=== PATIENT | male | born 1965 | race Caucasian/White ===

== ENCOUNTER 2025-05-19 14:11 | Observation (INO) | payer SELFPAY ==
[2025-05-19] VITALS (9 sets, daily range): BP systolic 120–170; BP diastolic 82–116; PULSE 70–100; RESP 17–22; TEMP 36.4–37.1; O2SAT 92–97; BMI 29.0
--- NOTE | ~2025-05-19 | CT_ITS ---
CT brain wo con Indication: AMS Comparison: None Technique: One or more of the following dose reduction techniques were used: automated exposure control, adjustment of the mA and/or kV according to patient size, use of iterative reconstruction technique. Unless otherwise stated, incidental findings do not require dedicated follow up imaging Findings: No acute infarct or parenchymal hemorrhage. No abnormal mass or mass effect. No midline shift. No extra-axial fluid collections. No hydrocephalus. Mastoid air cells unremarkable. Sinuses and orbits unremarkable. No acute fracture. No significant facial or scalp soft tissue swelling evident. No radiopaque foreign body is seen. Impression: No acute intracranial abnormality. Reviewed, dictated and finalized at location P. RATORY SECRETARY Impression: No acute intracranial abnormality.
--- NOTE | ~2025-05-19 | MR_ITS ---
EXAMINATION: MR brain/brain stem wo con DATE: 05/20/2025 16:04 INDICATION: Seizure TECHNIQUE: Magnetic resonance imaging (MRI) of the brain and brainstem was performed without intravenous contrast. Sequences included sagittal and axial T1-weighted SE, axial diffusion-weighted FS SE, axial T2*-weighted GRE, axial T2-weighted FLAIR, and axial T2-weighted FSE. Postcontrast axial and coronal T1- weighted SE was obtained. Apparent diffusion coefficient (ADC) maps were created. COMPARISON: Head CT dated 05/19/2025 FINDINGS: There is magnetic field artifact most prominent on the diffusion weighted and susceptibility weighted imaging centered at the left zygoma where there is a small wire evident on prior CT. There are no areas of restricted diffusion to suggest acute infarction. No intracranial hemorrhage or abnormal intracranial mass lesion. There are a few scattered small foci of nonspecific increased T2- weighted signal intensity in the cerebral white matter, predominantly involving the deep and periventricular white matter. There are no intraparenchymal signal abnormalities seen on the other pulse sequences. The ventricles are symmetric and normal in size. There are no abnormal extra-axial fluid collections. Flow vo ids are seen in the cerebral arteries on the T2-weighted sequences consistent with their expected patency. Small left mastoid effusion. Visualized orbits and soft tissues are unremarkable. IMPRESSION: 1. Minimal scattered mesenteric cerebral white matter T2 hyperintensity which within normal limits for age and likely sequela of chronic small vessel ischemic disease. No acute intracranial process. 2. Small left mastoid effusion. Reviewed, dictated and finalized at location A. DIRECTOR IMPRESSION: 1. Minimal scattered mesenteric cerebral white matter T2 hyperintensity which w ithin normal limits for age and likely sequela of chronic small vessel ischemic disease. No acute intracranial process. 2. Small left mastoid effusion.
--- NOTE | 2025-05-19 14:21 | ECG_ITS ---
Test Date: 2025-05-19 14:26:17 Measurements Intervals [place] Rate: 81 P: 42 DC: 177 QRS: -79 QRSD: 101 T: 6 QT: 398 QTc: 464 Interpretive Statements SINUS RHYTHM INCOMPLETE RIGHT BUNDLE BRANCH BLOCK LEFT ANTERIOR FASCICULAR BLOCK BASELINE WANDER- V1 ABNORMAL ECG No previous ECG available for comparison Electronically Signed On 05-19-2025 14:30:15 COORDINATOR OF EVALUATION by Arpan Barahona D.O.
[2025-05-19 14:44] LABS: Hematocrit 35.4 % (42.0-52.0); Hemoglobin 12.5 g/dL (14.0-18.0); Immature Granulocyte Percent A 1.1 % (0-0.5); Immature Platelet Fraction Pct 1.8 % (0.9-11.2); Lymphocytes Absolute Auto 0.65 K/mm3 (0.9-3.2); Mean Corpuscular HGB Conc 35.3 g/dl (32-36); Mean Corpuscular Hemoglobin 38.0 pg (26-34); Mean Corpuscular Volume 107.6 fl (80-100); Nucleated Red Blood Cells Absolute Auto 0.000 K/mm3 (0.0-0.012); Nucleated Red Blood Cells Perc 0.0 % (0.0-0.2); Platelet Count Result 103 k/mm3 (150-375); Red Blood Count 3.29 M/mm3 (4.6-6.20); White Blood Count 5.6 K/mm3 (4.5-10.0)
[2025-05-19 14:52] LABS: Alanine Aminotransferase 37 U/L (6-50); Albumin Level 4.8 g/dL (3.5-5.1); Alkaline Phosphatase 79 U/L (38-126); Anion Gap 17 mmol/L (4-12); Aspartate Amino Transferase 65 U/L (17-59); Bilirubin,Total 0.8 mg/dL (0.2-1.3); Blood Urea Nitrogen 9 mg/dL (9-20); Calcium 8.9 mg/dL (8.4-10.2); Carbon Dioxide 14 mmol/L (22-30); Chloride 103 mmol/L (98-107); Estimated CRCL calculation 109 ml/min; Estimated Glomerular Filt Rate > 60; Glucose 138 mg/dL (65-110); Potassium 4.4 mmol/L (3.4-5.0); Sodium 134 mmol/L (137-145); Total Protein 7.7 g/dL (6.3-8.2)
[2025-05-19 15:18] LABS: Macrocytosis Occasional (NORMAL); Schistocytes None Seen
[2025-05-19 15:21] LABS: Add Urine Microscopic? YES; Appearance Urine Clear (Clear); Glucose Urine UA Negative (Negative); Leukocyte Esterase Ur Negative LEU/UL (Negative); Nitrate Urine Negative (Negative); Specific Grav Ur 1.015 (1.001-1.035)
[2025-05-19 15:26] LABS: Thyroid Stimulating Hormone Reflex 9.410 uIU/mL (0.465-4.68)
[2025-05-19 15:37] LABS: INR 1.0; Prothrombin Time 13.7 Seconds (11.1-14.7)
[2025-05-19 15:38] LABS: Partial Thromboplastin Time 25.2 Seconds (22.3-36.8)
[2025-05-19 15:50] LABS: Cannabinoid Screen Urine Negative (Negative)
[2025-05-19 16:02] LABS: Free T4 Free Thyroxine Reflex 0.72 ng/dL (0.78-2.19)
--- NOTE | 2025-05-19 16:36 | ED_ITS ---
HPI - Altered Mental Status General Chief Complaint: Altered Mental Status Stated Complaint: fall, AMS Time Seen by Provider: 05/19/25 14:15 History of Present Illness HPI narrative: Patient is a 60-year-old male who presents ER from [facility] with altered mental status. Patient got up to use restroom and then a friend heard a crash in the bathroom. When they checked on him he was shaking. Patient has history of heavy alcohol use. Him and his friends recently drove to the area from [place] and were in the car overnight and he had not had a drink of alcohol since 1:30 a.m.. They are unsure if he has history of alcohol withdrawal seizure. Patient is currently alert to self. He has some bruising to the back of his head. Related Data Allergies Allergy/AdvReac Type Severity Reaction Status Date / Time No Known Allergies Allergy Verified 05/19/25 14:22 Review of Systems 2 Review of Systems: ROS unobtainable: Yes unobtainable due to mental status PMFSH Past Medical History Medical History (Updated 05/19/25 @ 21:52 by Sunday Conti MD) Fx clavicle Left - Surgical Repair Amputation finger No pertinent past medical history Exam 2 Narrative: GENERAL: Well-appearing, well-nourished, and in no acute distress. HEAD: Normocephalic, bruising back of the head ENT: Mucous membranes moist. NECK: Supple. CHEST: Clear to auscultation. No respiratory distress. HEART: Regular rate and rhythm. Normal peripheral pulses. ABDOMEN: Soft, nontender, nondistended. EXTREMITIES: Normal range of motion. No edema. SKIN: Warm, dry, pink splotchy rash to the arms and legs. NEURO: Alert and oriented x1. Mildly tremulous. PSYCH: Normal mood and affect. Course Course Emergency Course: Patient improving is now alert orient x4. He is a heavy alcohol drinker and drinks about a 5th of out alcohol a day. No history of withdrawal seizure. He is comfortable staying in the hospital for further management of his alcohol withdrawal. He has received some Valium and fluids. He is slightly tremulous. Vital Signs Vital signs: Vital Signs Temperature 97.6 F 05/19/25 14:16 Pulse Rate 90 05/19/25 14:16 Respiratory Rate 19 05/19/25 14:16 Blood Pressure 120/82 05/19/25 14:16 Pulse Oximetry 92 05/19/25 14:16 Oxygen Delivery Room Air 05/19/25 14:16 Temperature 98.4 F 05/19/25 21:00 Pulse Rate 83 05/19/25 21:00 Respiratory Rate 22 H 05/19/25 21:00 Blood Pressure 162/112 H 05/19/25 21:00 Pulse Oximetry 96 05/19/25 21:00 Oxygen Delivery Room Air 05/19/25 14:16 MDM Differential Diagnosis Differential Diagnosis: Seizure, alcohol withdrawal, intracranial hemorrhage, CVA, pulmonary embolism Lab Data 05/19/25 14:34 05/19/25 14:34 Labs: Lab Results 05/19/25 05/19/25 Range/Units 14:34 15:11 WBC 5.6 (4.5-10.0) K/mm3 RBC 3.29 L (4.6-6.20) M/mm3 Hgb 12.5 L (14.0-18.0) g/dL Hct 35.4 L (42.0-52.0) % MCV 107.6 H (80-100) fl MCH 38.0 H (26-34) pg MCHC 35.3 (32-36) g/dl RDW 14.0 (11.5-14.5) % Plt Count 103 L (150-375) k/mm3 MPV 8.8 (7.4-10.4) fl Immature Gran % (Auto) 1.1 H (0-0.5) % Neut % (Auto) 78.6 H (45.5-73.1) % Lymph % (Auto) 11.5 L (18.3-44.2) % [place] % (Auto) 7.3 (2.6-8.5) % Eos % (Auto) 1.1 (0-4.4) % Baso % (Auto) 0.4 (0.2-1.2) % Lymph # (Auto) 0.65 L (0.9-3.2) K/mm3 [place] # (Auto) 0.4 (0.1-0.6) K/mm3 Eos # (Auto) 0.1 (0-0.3) K/mm3 Baso # (Auto) 0.0 (0.0-0.1) K/mm3 Abs Immat Gran (auto) 0.06 H (0.00-0.031) K/mm3 Absolute Neuts (auto) 4.4 (1.3-6.7) K/mm3 Absolute Nucleated RBC 0.000 (0.0-0.012) K/mm3 Band Neutrophils % Not Reportable Nucleated RBC % 0.0 (0.0-0.2) % Atypical Lymphocytes Present Platelet Estimate Decreased (Adequate) % Immature Plt Fraction 1.8 (0.9-11.2) % Macrocytosis Occasional (NORMAL) Schistocytes None seen PT 13.7 (11.1-14.7) Seconds INR 1.0 APTT 25.2 (22.3-36.8) Seconds Sodium 134 L (137-145) mmol/L Potassium 4.4 (3.4-5.0) mmol/L Chloride 103 (98-107) mmol/L Carbon Dioxide 14 L (22-30) mmol/L Anion Gap 17 H (4-12) mmol/L BUN 9 (9-20) mg/dL Creatinine 0.67 L (0.7-1.3) mg/dL Estim Creat Clear Calc 109 ml/min Estimated GFR > 60 (59 - ) Glucose 138 H (65-110) mg/dL Calcium 8.9 (8.4-10.2) mg/dL Total Bilirubin 0.8 (0.2-1.3) mg/dL AST 65 H (17-59) U/L ALT 37 (6-50) U/L Alkaline Phosphatase 79 (38-126) U/L Total Protein 7.7 (6.3-8.2) g/dL Albumin 4.8 (3.5-5.1) g/dL TSH (Reflex) 9.410 H (0.465-4.68) uIU/mL Free T4 0.72 L (0.78-2.19) ng/dL Urine Color Yellow (Yellow) Urine Appearance Clear (Clear) Urine pH 5.5 (5.0-9.0) Ur Specific [place] 1.015 (1.001-1.035) Urine Protein 2+ H (Negative) mg/dL Urine Glucose (UA) Negative (Negative) mg/dL Urine Ketones 1+ H (Negative) mg/dL Ur Blood (Man) Trace (Negative) Urine Nitrate Negative (Negative) Urine Bilirubin Negative (Negative) Urine Urobilinogen 0.2 (<2.0) mg/dL Leukocyte Esterase Rfl Negative (Negative) SHERMAN/UL Urine RBC 0-2 (0-2) /hpf Urine WBC 0-5 (0-3) /hpf Ur Squamous Epith Cells None seen (Few) /hpf Urine Bacteria None seen /hpf Urine Casts 3-5 Urine Opiates Screen Negative (Negative) Urine Methadone Screen Negative (Negative) Ur Barbiturates Screen Negative (Negative) Ur Phencyclidine Scrn Negative (Negative) Ur Amphetamine Screen Negative (Negative) U Benzodiazepines Scrn Negative (Negative) Urine Cocaine Screen Negative (Negative) U Cannabinoids Screen Negative (Negative) Ethyl Alcohol < 10 (<10) mg/dL Imaging Data Attestation: I personally reviewed and interpreted this imaging study as follows: Radiologist's impression: ITS Impressions Head CT 05/19/25 14:47 Impression: No acute intracranial abnormality. ECG Data EKG #1: ECG completion date: 05/19/25 ECG completion time: 14:26 normal rate (81), sinus rhythm, normal QRS, RBBB and normal QT Discharge Plan Discharge Clinical Impression: Alcohol withdrawal seizure Patient Disposition: Still a Patient Condition: Stable
[2025-05-19] MEDS: SODIUM CHLORIDE 0.9% IV 1,000 ML 999 ML IV CONT (16:41)
[2025-05-19] MEDS: diazePAM INJ (*CRX) 10 MG/2 ML SYRINGE 5 MG IV PUSH (16:43)
[2025-05-19] MEDS: SODIUM CHLORIDE 0.9% IV 1,000 ML 125 ML IV CONT (17:24)
--- NOTE | 2025-05-19 20:42 | P.HP_ITS ---
H&P: HPI History of Present Illness Date/Time: 05/19/25 1730 Chief Complaint: Seizure Narrative: Patient with a past medical history of alcohol abuse presents to the ED on 05/19/2025 with complaints of a seizure. Patient lives in [place] and is here in a hotel for the weekend with friends for [employer] at the [employer]. Patient got up to use the bathroom and his friend heard a loud crash. They went to check on him and he was on the floor shaking. Patient A&Ox1 on arrival to the ED and has bruising to the back of his head. patient has a history of heavy alcohol use, consuming about a 5th daily. His last drink was 05/19/25 at 1:30 a.m.. Patient reports a previous alcohol withdrawal seizure about 1 and half years ago. Patient denies chest pain, shortness a breath, fever. Patient denies any additional PMH. Initial vital signs 120/82, HR 90, respirations 19, afebrile and 92% on room air. Hematology reveals anemia (likely chronic due to alcohol abuse), sodium 134, carbon dioxide 14, anion gap 17, creatinine 0.67, glucose 138, AST 65, TSH 9.410, free T4 0.72. The UA without sign of infection. UDS negative for any substance. Head CT with no acute intracranial abnormality. Review of Systems Review of Systems: All systems reviewed & are unremarkable except as noted in HPI and below PMFSH Past Medical History Medical History (Updated 05/20/25 @ 00:25 by Tiffani Perez APRN) Fx clavicle Left - Surgical Repair Amputation finger No pertinent past medical history Social History Social History Smoking status: Never smoker Alcohol intake: current Drinks per week: 10 Substance use type: does not use Lack of Transportation: No Lack of Food: Never True Current Housing: I Have Housing Concerned About Future Housing: No Difficulty Paying Gas/Electric Bills: No Difficulty Paying for Meds: No Currently Unemployed: No Education: Associate Degree Difficulty w/ Childcare or Family Care: No Spiritual care concerns: No Meds Home Medications and Allergies Home Medications ?Medication ?Instructions ?Recorded ?Confirmed ?Type No Home Medications 05/19/25 05/19/25 H istory Allergies Allergy/AdvReac Type Severity Reaction Status Date / Time No Known Allergies Allergy Verified 05/19/25 21:55 Vital Signs Vital Signs - 24 hr 05/19/25 14:16 05/19/25 14:32 05/19/25 16:06 Temperature 97.6 F Pulse Rate 90 100 92 Respiratory Rate 19 17 Blood Pressure 120/82 165/99 H Pulse Oximetry 92 96 Oxygen Delivery Room Air 05/19/25 16:46 05/19/25 19:21 05/19/25 20:01 Temperature 98.8 F Pulse Rate 89 91 95 Respiratory Rate 20 17 20 Blood Pressure 164/102 H 165/116 H 162/105 H Pulse Oximetry 95 96 95 Oxygen Delivery Exam Narrative: GENERAL: non-toxic appearing, in no acute distress. HEAD: Normocephalic. Tenderness to posterior scalp EYES: PERRLA. Conjunctivae clear. NOSE: Normal no drainage. THROAT: Pharynx clear, no exudate. NECK: Trachea midline. No adenopathy, no masses. RESPIRATORY: Airway patent, respirations nonlabored. CTA. CARDIOVASCULAR: Regular rate and rhythm GASTROINTESTINAL: Abdomen is soft and nontender. No organomegaly. Bowel sounds normal in all quadrants. GENITOURINARY: Defer MUSCULOSKELETAL: Moves all extremities. No gross deformities. SKIN: Warm, dry, normal color. NEURO: A&O X4. Speech clear. Mild upper extremity tremors PSYCHIATRIC: Normal interaction Results Labs Labs: Short CBC 05/19/25 Range/Units 14:34 WBC 5.6 (4.5-10.0) K/mm3 Hgb 12.5 L (14.0-18.0) g/dL Hct 35.4 L (42.0-52.0) % Plt Count 103 L (150-375) k/mm3 [facility] 05/19/25 14:34 Sodium 134 L Potassium 4.4 Chloride 103 Carbon Dioxide 14 L BUN 9 Creatinine 0.67 L Glucose 138 H Calcium 8.9 Liver Function 05/19/25 Range/Units 14:34 Total Bilirubin 0.8 (0.2-1.3) mg/dL AST 65 H (17-59) U/L ALT 37 (6-50) U/L Alkaline Phosphatase 79 (38-126) U/L Albumin 4.8 (3.5-5.1) g/dL Urine 05/19/25 Range/Units 15:11 Urine Color Yellow (Yellow) Urine Appearance Clear (Clear) Urine pH 5.5 (5.0-9.0) Ur Specific [place] 1.015 (1.001-1.035) Urine Protein 2+ H (Negative) mg/dL Urine Glucose (UA) Negative (Negative) mg/dL Quality VTE Prophylaxis VTE prophylaxis: mechanical ordered Assessment and Plan Assessment and plan (1) Alcohol withdrawal seizure: Qualifiers: Complication of substance-induced condition: uncomplicated Qualified Code(s): F10.930 - Alcohol use, unspecified with withdrawal, uncomplicated; R56.9 - Unspecified convulsions Code(s): F10.939 - Alcohol use, unspecified with withdrawal, unspecified; R56.9 - Unspecified convulsions Status: Acute Assessment and Plan: patient has a history of heavy alcohol use, consuming about a 5th daily. His last drink was 05/19/25 at 1:30 a.m.. Admits to a previous alcohol withdrawal seizure about a year and half ago. - daily ETOH use: Just under a 5th per day - last drink: 05/19/2025 at 0130 - [facility] protocol in place - Librium schedule - diazepam Q 2 p.r.n. - seizure precautions - neurochecks Q4H - IV fluids - antiemetics PRN (2) Elevated TSH: Code(s): R79.89 - Other specified abnormal findings of blood chemistry Status: Acute Assessment and Plan: TSH 9.410. Free T4 0.72 -start levothyroxine at 50 mcg daily -patient will need to follow up at home to have his levels monitored and had just dose as needed Plan Diet: Heart healthy DVT prophylaxis: SCD lines/drains: PIV Fluids: 1 L bolus-NS at 125 started on 05/19 Code status: Full Prior Studies I have reviewed the following patient records and this information was taken into consideration when formulating the assessment and plan.: previous labs, previous ER visits, previous hospitalizations and previous clinic visits Time Spent with Patient Time with patient: 45 - 74 minutes Hospitalist MIPS Advance Care Plan I have confirmed that the patient's Advanced Care Plan is present, code status is documented, or surrogate decision maker is listed in patient medical record.: Yes Medication Reconciliation I have utilized all available resources to obtain, update and review the patients current medications (includes all prescriptions, OTC, herbals, ca nnabis, and nutritional supplements).: Yes
--- NOTE | 2025-05-19 21:08 | WPCEDHO ---
ED Hand Off Checklist All vitals saved:Y IV Site documented:Y All med administrations documented:Y Triage Note Triage Note pt to ED by ems from local hot. 05/19/25 14:16 ems states that friends heard a loud noise come from his room and when they checked on him pt was on the floor. pt is normally alert and oriented x 4. pt is alert and oriented x1 at this time. friends unsure of any pmh. pt states he does not have any pmh. pt denies any pain anywhere. pt has some bruising noted to the back of his head. unsure if on blood thinners. BS 109. Allergies No Known Allergies Allergy (Verified 05/19/25 14:22) Active Medications including assessments/comments Sodium Chloride (Normal Saline Iv) 1,000 mls @ 125 mls/hr IV CONT .Q8H [facility] Last Admin: 05/19/25 17:24 Dose: 125 mls/hr Documented By: DAVE Infusion/Titration Document 05/19/25 17:24 [facility] (Rec: 05/19/25 17:25 [facility] [id number]) Intake IV Site Left Antecubital Container Volume 1,000 Waste Amount 0 Dosing Infusion Rate 125 Cumulative Dose Not Applicable Increase/Decrease Started Elapsed Time Elapsed Time ( 0m minutes) Administered/Completed Medications Discontinued Medications Diazepam (Diazepam Inj (*Crx) 10 Mg/2 Ml Syringe) 5 mg IV PUSH ONCE ONE Stop: 05/19/25 16:21 Last Admin: 05/19/25 16:43 Dose: 5 mg Documented By: KRISTA Sodium Chloride (Normal Saline Iv) 1,000 mls @ 999 mls/hr IV CONT .Q1H1M STA Stop: 05/19/25 17:20 Last Infusion: 05/19/25 17:25 Dose: Infused Documented By: Admin: 05/19/25 16:41 Dose: 999 mls/hr Documented By: KRISTA Interventions/Assessments Cardiac Monitoring Start: 05/19/25 14:16 Freq: Status: Active Protocol: Document 05/19/25 14:32 [facility] (Rec: 05/19/25 14:32 [facility] [id number]) Call Center Support Representative Assessment Call Center Support Representative Yes Applied Pulse Rate (60-100) 100 EKG Rythm Sinus Rhythm IV / Saline Lock, Insert Start: 05/19/25 14:21 Freq: STAT Status: Active Protocol: Document 05/19/25 14:30 [facility] (Rec: 05/19/25 14:30 [facility] [id number]) IV Assessment Left Antecubital IV Catheter Access Initiated Before Arrival Catheter Gauge 18 IV Site Assessment WNL IV Care and WNL Maintenance PA: Cardiovascular Assessment Start: 05/19/25 14:16 Freq: Status: Active Protocol: Document 05/19/25 14:33 [facility] (Rec: 05/19/25 14:34 [facility] [id number]) Cardiovascular Assessment Cardiovascular None Symptoms Skin Description Normal Color,Clammy Heart Sounds Normal Jugular Vein None Distention Rhythm/Strength Apical Rhythm Regular Pulse Strength 3+ Normal EKG Rythm Sinus Rhythm Capillary Refill Bilateral Upper Extremity Capillary Refill Normal/Less than 2 Seconds PA: Neurological Assessment Start: 05/19/25 14:16 Freq: Status: Active Protocol: Document 05/19/25 17:25 [facility] (Rec: 05/19/25 17:26 [facility] [id number]) Neurological Assessment Level of Alert,Awake Consciousness Arousable to Verbal Orientation Oriented to Person,Oriented to Place,Oriented to Time Jael Coma Scale Eyes Open Verbal Oriented and Alert Motor Follows Commands Jael Coma Total 15 Score PA: Respiratory Assessment Start: 05/19/25 14:16 Freq: Status: Active Protocol: Document 05/19/25 14:33 [facility] (Rec: 05/19/25 14:34 [facility] [id number]) Respiratory Assessment Symptoms None Effort Normal Pattern Regular Depth Normal Retractions Intercostal Adult Capillary Normal/Less than 2 Seconds Refill Last Vital Signs Temperature 98.4 F 05/19/25 21:00 Pulse Rate 83 05/19/25 21:00 Respiratory Rate 22 H 05/19/25 21:00 Pulse Oximetry 96 05/19/25 21:00 Blood Pressure 162/112 H 05/19/25 21:00 Blood Pressure Mean 128 05/19/25 21:00 Blood Pressure Position Supine 05/19/25 16:46 Oxygen Delivery Room Air 05/19/25 14:16 Weight 96.8 kg 05/19/25 14:16 Last Result - Abnormals Only RBC 3.29 M/mm3 (4.6-6.20) L 05/19/25 14:34 Hgb 12.5 g/dL (14.0-18.0) L 05/19/25 14:34 Hct 35.4 % (42.0-52.0) L 05/19/25 14:34 MCV 107.6 fl (80-100) H 05/19/25 14:34 MCH 38.0 pg (26-34) H 05/19/25 14:34 Plt Count 103 k/mm3 (150-375) L 05/19/25 14:34 Immature Gran % (Auto) 1.1 % (0-0.5) H 05/19/25 14:34 Neut % (Auto) 78.6 % (45.5-73.1) H 05/19/25 14:34 Lymph % (Auto) 11.5 % (18.3-44.2) L 05/19/25 14:34 Lymph # (Auto) 0.65 K/mm3 (0.9-3.2) L 05/19/25 14:34 Abs Immat Gran (auto) 0.06 K/mm3 (0.00-0.031) H 05/19/25 14:34 Sodium 134 mmol/L (137-145) L 05/19/25 14:34 Carbon Dioxide 14 mmol/L (22-30) L 05/19/25 14:34 Anion Gap 17 mmol/L (4-12) H 05/19/25 14:34 Creatinine 0.67 mg/dL (0.7-1.3) L 05/19/25 14:34 Glucose 138 mg/dL (65-110) H 05/19/25 14:34 AST 65 U/L (17-59) H 05/19/25 14:34 TSH (Reflex) 9.410 uIU/mL (0.465-4.68) H 05/19/25 14:34 Free T4 0.72 ng/dL (0.78-2.19) L 05/19/25 14:34 Urine Protein 2+ mg/dL (Negative) H 05/19/25 15:11 Urine Ketones 1+ mg/dL (Negative) H 05/19/25 15:11 Most Recent CIWA Score CIWA Total Score 6 05/19/25 20:39 Most Recent Suicide Severity Rating Suicide Severity Rating NO RISK INDICATED 05/19/25 14:16
--- NOTE | 2025-05-19 22:36 | ADMGEN ---
This patient, Grupo Ang, was admitted to IMU Room 232-01 at 2140. Patient/family oriented to hospital policies and general routines including ID bracelet, bed and alarms, visiting hours, pain management, procedures, bathroom and other care routines, personal items, smoking policy, room service/diet, and visiting hours. Information on how to activate the Rapid Response Team has been discussed. Patient/Family are encouraged to report perceived risks to care and to ask questions if they do not understand what they are told or what they should do.
[2025-05-19] MEDS: chlordiazePOXIDE (*CRX) 25 MG CAPSULE 50 MG PO (23:55)
[2025-05-20] VITALS (12 sets, daily range): BP systolic 143–171; BP diastolic 100–111; PULSE 73–98; RESP 16–20; TEMP 36.6–37.1; O2SAT 96–98
[2025-05-20] MEDS: chlordiazePOXIDE (*CRX) 25 MG CAPSULE 50 MG PO ×2 (05:54→12:20)
[2025-05-20] MEDS: LEVOTHYROXINE SODIUM 50 MCG TABLET PO (05:54)
[2025-05-20 06:22] LABS: Hematocrit 34.4 % (42.0-52.0); Hemoglobin 12.1 g/dL (14.0-18.0); Immature Granulocyte Percent A 0.3 % (0-0.5); Immature Platelet Fraction Pct 2.1 % (0.9-11.2); Lymphocytes Absolute Auto 0.50 K/mm3 (0.9-3.2); Mean Corpuscular HGB Conc 35.2 g/dl (32-36); Mean Corpuscular Hemoglobin 37.3 pg (26-34); Mean Corpuscular Volume 106.2 fl (80-100); Nucleated Red Blood Cells Absolute Auto 0.000 K/mm3 (0.0-0.012); Nucleated Red Blood Cells Perc 0.0 % (0.0-0.2); Platelet Count Result 87 k/mm3 (150-375); Red Blood Count 3.24 M/mm3 (4.6-6.20); White Blood Count 4.0 K/mm3 (4.5-10.0)
[2025-05-20 06:44] LABS: Anion Gap 8 mmol/L (4-12); Blood Urea Nitrogen 8 mg/dL (9-20); Calcium 8.7 mg/dL (8.4-10.2); Carbon Dioxide 23 mmol/L (22-30); Chloride 102 mmol/L (98-107); Estimated CRCL calculation 115 ml/min; Estimated Glomerular Filt Rate > 60; Glucose 98 mg/dL (65-110); Potassium 3.3 mmol/L (3.4-5.0); Sodium 133 mmol/L (137-145)
[2025-05-20 06:55] LABS: Anisocytosis 2+; Macrocytosis 1+ (NORMAL); Stomatocytes 1+
[2025-05-20 06:56] LABS: Schistocytes None Seen
[2025-05-20] MEDS: POTASSIUM CHLORIDE 20 MEQ PACKET (FOR LIQUID) PO ×2 (09:51→17:26)
[2025-05-20] MEDS: THIAMINE HCL 100 MG TABLET PO (09:52)
[2025-05-20] MEDS: FOLIC ACID 1 MG TABLET PO (09:52)
--- NOTE | 2025-05-20 12:05 | P.PNIM_ITS ---
Assessment and Plan Assessment and Plan (1) Elevated TSH: Code(s): R79.89 - Other specified abnormal findings of blood chemistry Status: Acute (2) Alcohol withdrawal seizure: Qualifiers: Complication of substance-induced condition: uncomplicated Qualified Code(s): F10.930 - Alcohol use, unspecified with withdrawal, uncomplicated; R56.9 - Unspecified convulsions Code(s): F10.939 - Alcohol use, unspecified with withdrawal, unspecified; R56.9 - Unspecified convulsions Status: Acute Plan 60-year-old male with past medical history of alcohol use disorder, possibly hypertension, not on medications presented with episode of syncope/possible seizure.Patient lives in [place] and is here in a hotel for the weekend with friends for [employer] at the [facility]. Patient got up to use the bathroom and his friend heard a loud crash. They went to check on him and he was on the floor shaking. Patient A&Ox1 on arrival to the ED and has bruising to the back of his head. patient has a history of heavy alcohol use, consuming about a 5th daily. His last drink was 05/19/25 at 1:30 a.m.. Patient reports a previous alcohol withdrawal seizure about 1 and half years ago. UDS negative for any substance. Head CT with no acute intracranial abnormality. 1.possibly seizure: ? Alcohol-related Fall, aspiration, seizure precaution Will obtain MRI brain will start Keppra 500 mg b.i.d. since this might be his 2nd episode No driving or operating heavy machinery Neuro consult when available [place] to stab his care with PCP, [place] when discharged from hospital 2. Alcohol use disorder: Alcohol cessation counseling Continue with CIWA protocol Continue with Librium scheduled for now CIWA have been low, less than 5 since morning Continue with folic acid, thiamine DC IV fluids Supplement potassium 3. Hypertension: Will start on hydrochlorothiazide, Norvasc Patient was on antihypertensives at some point in the past, but stopped taking on its own Will obtain lipid panel, hemoglobin A1c with next set of labs 4. Hypothyroidism: No prior history Will start on levothyroxine 5. Code status: Full 6. DVT prophylaxis: SCDs, noted thrombocytopenia, likely related to alcohol intake 7. Disposition: Pending improvement Time Spent With Patient Time with patient: 25 - 35 minutes Subjective Date/time seen: 05/20/25 12:05 Interval history: No acute events overnight Review of Systems Review of Systems: All systems reviewed & are unremarkable except as noted in HPI and below Exam Narrative: GENERAL: non-toxic appearing, in no acute distress. HEAD: Normocephalic. EYES: PERRLA. Conjunctivae clear. THROAT: Noted bruising over the time/tongue bite probably from the seizure NECK: Supple RESPIRATORY: Airway patent, respirations nonlabored. CTA. CARDIOVASCULAR: Regular rate and rhythm GASTROINTESTINAL: Abdomen is soft and nontender. No organomegaly. Bowel sounds normal in all quadrants. MUSCULOSKELETAL: Moves all extremities. No gross deformities. SKIN: Warm, dry, normal color. NEURO: A&O X4. Speech clear. Mild upper extremity tremors PSYCHIATRIC: Normal interaction Objective Data Vital Signs Vital Signs: Vital Signs - 24 hr 05/19/25 14:16 05/19/25 14:32 05/19/25 16:06 Temperature 97.6 F Pulse Rate 90 100 92 Pulse Rate [Apical] Respiratory Rate 19 17 Blood Pressure 120/82 165/99 H Pulse Oximetry 92 96 Oxygen Delivery Room Air 05/19/25 16:46 05/19/25 19:21 05/19/25 20:01 Temperature 98.8 F Pulse Rate 89 91 95 Pulse Rate [Apical] Respiratory Rate 20 17 20 Blood Pressure 164/102 H 165/116 H 162/105 H Pulse Oximetry 95 96 95 Oxygen Delivery 05/19/25 21:00 05/19/25 21:46 05/19/25 22:00 Temperature 98.4 F 98.4 F Pulse Rate 83 94 70 Pulse Rate [Apical] Respiratory Rate 22 H 18 Blood Pressure 162/112 H 170/113 H Pulse Oximetry 96 97 Oxygen Delivery 05/20/25 00:00 05/20/25 00:00 05/20/25 00:00 Temperature Pulse Rate 83 Pulse Rate [Apical] 77 Respiratory Rate Blood Pressure Pulse Oximetry Oxygen Delivery Room Air 05/20/25 00:00 05/20/25 02:00 05/20/25 03:40 Temperature 98.7 F Pulse Rate 78 73 Pulse Rate [Apical] 80 Respiratory Rate 18 Blood Pressure 171/101 H Pulse Oximetry 96 Oxygen Delivery 05/20/25 03:40 05/20/25 04:00 05/20/25 04:00 Temperature 98.8 F Pulse Rate 76 80 Pulse Rate [Apical] Respiratory Rate 16 Blood Pressure 162/109 H Pulse Oximetry 98 Oxygen Delivery Room Air 05/20/25 06:00 05/20/25 08:00 05/20/25 08:00 Temperature 97.8 F Pulse Rate 75 98 Pulse Rate [Apical] Respiratory Rate 16 Blood Pressure 158/108 H Pulse Oximetry 97 Oxygen Delivery Room Air 05/20/25 08:00 05/20/25 10:00 05/20/25 12:00 Temperature 98.3 F Pulse Rate 97 92 85 Pulse Rate [Apical] Respiratory Rate 18 Blood Pressure 161/111 H Pulse Oximetry 96 Oxygen Delivery Intake/Output Intake/Output: Intake & Output 05/17/25 05/18/25 05/19/25 05/20/25 23:59 23:59 23:59 23:59 Intake Total 1000 590 Output Total 1200 Balance 1000 -610 Meds/Results Medications: Active Medications Generic Name Dose Route Start Last Admin Trade Name Freq PRN Reason Stop Dose Admin Acetaminophen 650 mg 05/19/25 17:05 Acetaminophen 325 Mg Tablet PO Q4H PRN Mild Pain (1-3) or Fever Hydrocodone Bitart/Acetaminophen 1 tab 05/19/25 17:05 Hydrocodone/Acetaminophen (*Crx) 5-325 Mg Tablet PO Q4H PRN Pain Rated 4-6 Chlordiazepoxide HCl 50 mg 05/20/25 00:00 05/20/25 05:54 Chlordiazepoxide (*Crx) 25 Mg Capsule PO 50 mg Q6HR SABRINA Administration Diazepam 5 mg 05/19/25 20:39 Diazepam Inj (*Crx) 10 Mg/2 Ml Syringe IV PUSH Q6H PRN Alcohol Withdrawal Folic Acid 1 mg 05/20/25 09:00 05/20/25 09:52 Folic Acid 1 Mg Tablet PO 1 mg DAILY SABRINA Administration Hydrochlorothiazide 25 mg 05/20/25 09:10 05/20/25 09:51 Hydrochlorothiazide 25 Mg Tablet PO 25 mg QAM SABRINA Administration Sodium Chloride 1,000 mls @ 125 mls/hr 05/19/25 17:05 05/20/25 10:31 Normal Saline Iv IV CONT Not Given .Q8H SABRINA Levetiracetam 500 mg in 100 mls @ 400 mls/hr 05/20/25 12:05 Keppra Iv IVPB Q12HR SABRINA Levothyroxine Sodium 50 mcg 05/20/25 06:30 05/20/25 05:54 Levothyroxine Sodium 50 Mcg Tablet PO 50 mcg DAILY@0630 SABRINA Administration Ondansetron HCl 4 mg 05/19/25 17:05 Ondansetron Inj 4 Mg/2 Ml Vial IV PUSH Q4H PRN Nausea Ondansetron HCl 4 mg 05/19/25 20:39 Ondansetron Inj 4 Mg/2 Ml Vial IV PUSH Q6H PRN Nausea And Vomiting Potassium Chloride 20 meq 05/20/25 09:15 05/20/25 09:51 Potassium Chloride 20 Meq Packet (For Liquid) PO 05/20/25 17:01 20 meq BID SABRINA Administration Thiamine HCl 100 mg 05/20/25 09:00 05/20/25 09:52 Thiamine Hcl 100 Mg Tablet PO 100 mg DAILY SABRINA Administration Radiology Results: ITS Impressions Head CT 05/19/25 14:47 Impression: No acute intracranial abnormality. Labs Labs: Laboratory Results - last 24 hr 05/19/25 05/19/25 05/20/25 14:34 15:11 00:58 WBC 5.6 RBC 3.29 L Hgb 12.5 L Hct 35.4 L MCV 107.6 H MCH 38.0 H MCHC 35.3 RDW 14.0 Plt Count 103 L MPV 8.8 Immature Gran % (Auto) 1.1 H Neut % (Auto) 78.6 H Lymph % (Auto) 11.5 L [place] % (Auto) 7.3 Eos % (Auto) 1.1 Baso % (Auto) 0.4 Lymph # (Auto) 0.65 L [place] # (Auto) 0.4 Eos # (Auto) 0.1 Baso # (Auto) 0.0 Abs Immat Gran (auto) 0.06 H Absolute Neuts (auto) 4.4 Absolute Nucleated RBC 0.000 Band Neutrophils % Not Reportable Nucleated RBC % 0.0 Atypical Lymphocytes Present Platelet Estimate Decreased % Immature Plt Fraction 1.8 Anisocytosis Macrocytosis Occasional Stomatocytes Schistocytes None seen PT 13.7 INR 1.0 APTT 25.2 Sodium 134 L Potassium 4.4 Chloride 103 Carbon Dioxide 14 L Anion Gap 17 H BUN 9 Creatinine 0.67 L Estim Creat Clear Calc 109 Estimated GFR > 60 Glucose 138 H POC Capillary Glucose 114 H Calcium 8.9 Total Bilirubin 0.8 AST 65 H ALT 37 Alkaline Phosphatase 79 Total Protein 7.7 Albumin 4.8 TSH (Reflex) 9.410 H Free T4 0.72 L Urine Color Yellow Urine Appearance Clear Urine pH 5.5 Ur Specific [place] 1.015 Urine Protein 2+ H Urine Glucose (UA) Negative Urine Ketones 1+ H Ur Blood (Man) Trace Urine Nitrate Negative Urine Bilirubin Negative Urine Urobilinogen 0.2 Leukocyte Esterase Rfl Negative Urine RBC 0-2 Urine WBC 0-5 Ur Squamous Epith Cells None seen Urine Bacteria None seen Urine Casts 3-5 Urine Opiates Screen Negative Urine Methadone Screen Negative Ur Barbiturates Screen Negative Ur Phencyclidine Scrn Negative Ur Amphetamine Screen Negative U Benzodiazepines Scrn Negative Urine Cocaine Screen Negative U Cannabinoids Screen Negative Ethyl Alcohol < 10 05/20/25 05/20/25 06:00 11:40 WBC 4.0 L RBC 3.24 L Hgb 12.1 L Hct 34.4 L MCV 106.2 H MCH 37.3 H MCHC 35.2 RDW 13.7 Plt Count 87 L MPV 9.4 Immature Gran % (Auto) 0.3 Neut % (Auto) 72.2 Lymph % (Auto) 12.5 L [place] % (Auto) 13.0 H Eos % (Auto) 1.5 Baso % (Auto) 0.5 Lymph # (Auto) 0.50 L [place] # (Auto) 0.5 Eos # (Auto) 0.1 Baso # (Auto) 0.0 Abs Immat Gran (auto) 0.01 Absolute Neuts (auto) 2.9 Absolute Nucleated RBC 0.000 Band Neutrophils % Not Reportable Nucleated RBC % 0.0 Atypical Lymphocytes Platelet Estimate Decreased % Immature Plt Fraction 2.1 Anisocytosis 2+ Macrocytosis 1+ Stomatocytes 1+ Schistocytes None seen PT INR APTT Sodium 133 L Potassium 3.3 L Chloride 102 Carbon Dioxide 23 Anion Gap 8 BUN 8 L Creatinine 0.63 L Estim Creat Clear Calc 115 Estimated GFR > 60 Glucose 98 POC Capillary Glucose 115 H Calcium 8.7 Total Bilirubin AST ALT Alkaline Phosphatase Total Protein Albumin TSH (Reflex) Free T4 Urine Color Urine Appearance Urine pH Ur Specific [place] Urine Protein Urine Glucose (UA) Urine Ketones Ur Blood (Man) Urine Nitrate Urine Bilirubin Urine Urobilinogen Leukocyte Esterase Rfl Urine RBC Urine WBC Ur Squamous Epith Cells Urine Bacteria Urine Casts Urine Opiates Screen Urine Methadone Screen Ur Barbiturates Screen Ur Phencyclidine Scrn Ur Amphetamine Screen U Benzodiazepines Scrn Urine Cocaine Screen U Cannabinoids Screen Ethyl Alcohol Quality VTE Prophylaxis VTE prophylaxis: mechanical ordered
[2025-05-20] MEDS: levETIRAcetam 500MG/NACL 100ML 500 MG/100 ML BAG 400 MG IVPB ×2 (12:21→20:57)
--- NOTE | 2025-05-20 14:50 | PCNEURO ---
EEG will not be able to be completed until Wednesday 05/23.
[2025-05-20] MEDS: chlordiazePOXIDE (*CRX) 25 MG CAPSULE PO (17:26)
--- NOTE | 2025-05-20 17:46 | PC.NURSE ---
This patient, [employer] [facility], was transferred to [facility] on 05/20/25 at 1740. Personal belongings sent with patient. Report given to Kristen LUNA. Appropriate documentation sent with patient.
[2025-05-21] VITALS (8 sets, daily range): BP systolic 125–156; BP diastolic 95–114; PULSE 74–100; RESP 16–19; TEMP 36.3–36.8; O2SAT 94–97
[2025-05-21] MEDS: chlordiazePOXIDE (*CRX) 25 MG CAPSULE PO ×5 (00:11→23:55)
[2025-05-21] MEDS: LEVOTHYROXINE SODIUM 50 MCG TABLET PO (05:36)
[2025-05-21 05:55] LABS: Hematocrit 37.2 % (42.0-52.0); Hemoglobin 13.0 g/dL (14.0-18.0); Immature Granulocyte Percent A 0.3 % (0-0.5); Immature Platelet Fraction Pct 2.8 % (0.9-11.2); Lymphocytes Absolute Auto 0.58 K/mm3 (0.9-3.2); Mean Corpuscular HGB Conc 34.9 g/dl (32-36); Mean Corpuscular Hemoglobin 37.9 pg (26-34); Mean Corpuscular Volume 108.5 fl (80-100); Nucleated Red Blood Cells Absolute Auto 0.000 K/mm3 (0.0-0.012); Nucleated Red Blood Cells Perc 0.0 % (0.0-0.2); Platelet Count Result 84 k/mm3 (150-375); Red Blood Count 3.43 M/mm3 (4.6-6.20); White Blood Count 3.5 K/mm3 (4.5-10.0)
[2025-05-21 06:04] LABS: Hemoglobin A1C 4.8 % (<5.7)
[2025-05-21 06:20] LABS: Alanine Aminotransferase 25 U/L (6-50); Albumin Level 4.6 g/dL (3.5-5.1); Alkaline Phosphatase 69 U/L (38-126); Anion Gap 8 mmol/L (4-12); Aspartate Amino Transferase 76 U/L (17-59); Bilirubin,Total 1.1 mg/dL (0.2-1.3); Blood Urea Nitrogen 9 mg/dL (9-20); Calcium 9.0 mg/dL (8.4-10.2); Carbon Dioxide 25 mmol/L (22-30); Chloride 99 mmol/L (98-107); Cholesterol 227 mg/dL (0-200); Estimated CRCL calculation 102 ml/min; Estimated Glomerular Filt Rate > 60; Glucose 103 mg/dL (65-110); HDL Direct 85 mg/dL; Magnesium 1.5 mg/dL (1.6-2.3); Potassium 3.4 mmol/L (3.4-5.0); Sodium 132 mmol/L (137-145); Total Protein 7.7 g/dL (6.3-8.2); Triglycerides 77 mg/dL (<150)
[2025-05-21 06:50] LABS: Macrocytosis 1+ (NORMAL); Schistocytes None Seen
[2025-05-21 06:52] LABS: Ovalocytes Occasional
[2025-05-21 07:29] LABS: Vitamin B12 231.0 pg/mL (239-931)
[2025-05-21] MEDS: levETIRAcetam 500MG/NACL 100ML 500 MG/100 ML BAG 400 MG IVPB (09:19)
[2025-05-21] MEDS: THIAMINE HCL 100 MG TABLET PO (09:21)
[2025-05-21] MEDS: FOLIC ACID 1 MG TABLET PO (09:24)
--- NOTE | 2025-05-21 14:36 | P.PNIM_ITS ---
Assessment and Plan Assessment and Plan (1) Alcohol withdrawal seizure: Qualifiers: Complication of substance-induced condition: uncomplicated Qualified Code(s): F10.930 - Alcohol use, unspecified with withdrawal, uncomplicated; R56.9 - Unspecified convulsions Code(s): F10.939 - Alcohol use, unspecified with withdrawal, unspecified; R56.9 - Unspecified convulsions Status: Acute Assessment and Plan: * MRI brain with evidence for atherosclerosis, no mass lesion or prior stroke * No need for AED * Alcohol w/d sz 05/19, 2nd day after alcohol cessation * Continue chlordiazepoxide at 25 mg q 6 hr (2) Alcohol use disorder: Code(s): F10.90 - Alcohol use, unspecified, uncomplicated Status: Acute Assessment and Plan: * Will need meetings, possibly medications to assist with abstinence * Chlordiazepoxide taper at discharge (3) Essential hypertension: Code(s): I10 - Essential (primary) hypertension Status: Acute Assessment and Plan: * 05/21 133/99 * Continue amlodpine and HCTZ * Will need f/u with PCP (4) Hypothyroidism (acquired): Code(s): E03.9 - Hypothyroidism, unspecified Status: Acute Assessment and Plan: * Continue levothyroxine at 25 mcg daily * F/u with PCP to adjust dose every 6-8 weeks (5) Pancytopenia: Code(s): D61.818 - Other pancytopenia Status: Acute Assessment and Plan: * Likely related to low B12 and alcohol consumption, primary marrow disorder less liekly * Will need f/u with PCP (6) Vitamin B12 deficiency: Code(s): E53.8 - Deficiency of other specified B group vitamins Status: Acute Assessment and Plan: * B12 IM, then B12 and folate PO * Will need f/u with PCP Subjective Date/time seen: 05/21/25 14:36 Interval history: No agitation or seizures. Tolerated diet. Denied pain or sob or gi/gu issues or weakness or numbness or dizziness or bleeding. Would like to go home tomorrow. Last drink was 05/17. Was drinking 1/2 a fifth per day until then. Review of Systems Review of Systems: All systems reviewed & are unremarkable except as noted in HPI and below Exam Narrative: HEENT: EOMI, PERRL, sclerae nonicteric, pharyngeal mucosa pink and intact NECK: No JVD, adenopathy, or thyromegaly CHEST: Clear to auscultation. Normal effort HEART: NL S1/S2, regular, no murmur ABDOMEN: BS+, soft, nontender, no mass, no bruits EXTREMITIES: No cyanosis, edema, or clubbing NEUROLOGIC: CN intact and symmetric to inspection MUSCULOSKELETAL: Tone and strength symmetric PSYCH: Alert. Oriented to person, place, and time Objective Data Vital Signs Vital Signs: Vital Signs - 24 hr 05/20/25 16:00 05/20/25 16:00 05/20/25 20:00 Temperature 98.5 F Pulse Rate 88 84 Pulse Rate [Apical] 80 Respiratory Rate 20 Blood Pressure 143/100 H 154/107 H Pulse Oximetry 97 Oxygen Delivery 05/20/25 20:00 05/20/25 20:00 05/20/25 20:16 Temperature 98.1 F Pulse Rate 85 80 85 Pulse Rate [Apical] Respiratory Rate 18 18 Blood Pressure 154/107 H Pulse Oximetry 97 97 Oxygen Delivery Room Air 05/21/25 00:00 05/21/25 00:00 05/21/25 00:42 Temperature 97.9 F Pulse Rate 86 79 Pulse Rate [Apical] 79 Respiratory Rate 19 Blood Pressure 156/100 H 156/100 H Pulse Oximetry 94 Oxygen Delivery 05/21/25 04:00 05/21/25 04:00 05/21/25 04:49 Temperature 97.5 F L Pulse Rate 74 85 Pulse Rate [Apical] 79 Respiratory Rate 18 Blood Pressure 149/114 H 149/114 H Pulse Oximetry 96 Oxygen Delivery 05/21/25 08:00 05/21/25 08:00 05/21/25 08:00 Temperature 97.5 F L Pulse Rate 95 Pulse Rate [Apical] 79 Respiratory Rate 16 Blood Pressure 148/109 H 149/114 H Pulse Oximetry 95 Oxygen Delivery Room Air 05/21/25 08:00 05/21/25 12:00 05/21/25 12:00 Temperature 97.3 F L Pulse Rate 94 100 Pulse Rate [Apical] 92 Respiratory Rate 16 Blood Pressure 133/99 H 133/99 H Pulse Oximetry 96 Oxygen Delivery 05/21/25 12:00 Temperature Pulse Rate 90 Pulse Rate [Apical] Respiratory Rate Blood Pressure Pulse Oximetry Oxygen Delivery Intake/Output Intake/Output: Intake & Output 05/18/25 05/19/25 05/20/25 05/21/25 23:59 23:59 23:59 23:59 Intake Total 1000 2270 1130 Output Total 2598 4910 Balance 1000 -45 -120 Meds/Results Medications: Active Medications Generic Name Dose Route Start Last Admin Trade Name Freq PRN Reason Stop Dose Admin Acetaminophen 650 mg 05/19/25 17:05 Acetaminophen 325 Mg Tablet PO Q4H PRN Mild Pain (1-3) or Fever Hydrocodone Bitart/Acetaminophen 1 tab 05/19/25 17:05 Hydrocodone/Acetaminophen (*Crx) 5-325 Mg Tablet PO Q4H PRN Pain Rated 4-6 Amlodipine Besylate 5 mg 05/20/25 12:10 05/21/25 09:21 Amlodipine Besylate 5 Mg Tablet PO 5 mg DAILY SABRINA Administration Chlordiazepoxide HCl 25 mg 05/20/25 18:00 05/21/25 11:58 Chlordiazepoxide (*Crx) 25 Mg Capsule PO 25 mg Q6HR SABRINA Administration Diazepam 5 mg 05/19/25 20:39 Diazepam Inj (*Crx) 10 Mg/2 Ml Syringe IV PUSH Q6H PRN Alcohol Withdrawal Folic Acid 1 mg 05/20/25 09:00 05/21/25 09:24 Folic Acid 1 Mg Tablet PO 1 mg DAILY SABRINA Administration Hydralazine HCl 10 mg 05/20/25 14:41 Hydralazine Hcl 20 Mg/Ml Vial IV PUSH Q6HR PRN BP>160/90 Hydrochlorothiazide 25 mg 05/20/25 09:10 05/21/25 09:21 Hydrochlorothiazide 25 Mg Tablet PO 25 mg QAM SABRINA Administration Levetiracetam 500 mg in 100 mls @ 400 mls/hr 05/20/25 12:05 05/21/25 09:34 Keppra Iv IVPB Infused Q12HR SABRINA Infusion Levothyroxine Sodium 50 mcg 05/20/25 06:30 05/21/25 05:36 Levothyroxine Sodium 50 Mcg Tablet PO 50 mcg DAILY@0630 SABRINA Administration Ondansetron HCl 4 mg 05/19/25 17:05 Ondansetron Inj 4 Mg/2 Ml Vial IV PUSH Q4H PRN Nausea Ondansetron HCl 4 mg 05/19/25 20:39 Ondansetron Inj 4 Mg/2 Ml Vial IV PUSH Q6H PRN Nausea And Vomiting Thiamine HCl 100 mg 05/20/25 09:00 05/21/25 09:21 Thiamine Hcl 100 Mg Tablet PO 100 mg DAILY SABRINA Administration Radiology Results: ITS Impressions Head CT 05/19/25 14:47 Impression: No acute intracranial abnormality. Brain MRI 05/20/25 16:08 IMPRESSION: 1. Minimal scattered mesenteric cerebral white matter T2 hyperintensity which within normal limits for age and likely sequela of chronic small vessel ischemic disease. No acute intracranial process. 2. Small left mastoid effusion. Labs Labs: Laboratory Results - last 24 hr 05/20/25 05/20/25 05/21/25 18:09 20:19 05:27 WBC 3.5 L RBC 3.43 L Hgb 13.0 L Hct 37.2 L MCV 108.5 H MCH 37.9 H MCHC 34.9 RDW 13.5 Plt Count 84 L MPV 9.5 Immature Gran % (Auto) 0.3 Neut % (Auto) 65.7 Lymph % (Auto) 16.7 L [place] % (Auto) 14.4 H Eos % (Auto) 2.6 Baso % (Auto) 0.3 Lymph # (Auto) 0.58 L [place] # (Auto) 0.5 Eos # (Auto) 0.1 Baso # (Auto) 0.0 Abs Immat Gran (auto) 0.01 Absolute Neuts (auto) 2.3 Absolute Nucleated RBC 0.000 Band Neutrophils % Not Reportable Nucleated RBC % 0.0 Platelet Estimate Decreased % Immature Plt Fraction 2.8 Macrocytosis 1+ Ovalocytes Occasional Schistocytes None seen Sodium 132 L Potassium 3.4 Chloride 99 Carbon Dioxide 25 Anion Gap 8 BUN 9 Creatinine 0.72 Estim Creat Clear Calc 102 Estimated GFR > 60 Glucose 103 POC Capillary Glucose 147 H 118 H Hemoglobin A1c Calcium 9.0 Magnesium 1.5 L Total Bilirubin 1.1 AST 76 H ALT 25 Alkaline Phosphatase 69 Total Protein 7.7 Albumin 4.6 Triglycerides 77 Cholesterol 227 H LDL Cholesterol Direct 113 HDL Direct 85 Vitamin B12 231.0 L Folate 7.8 05/21/25 05/21/25 05/21/25 05:28 06:08 11:59 WBC RBC Hgb Hct MCV MCH MCHC RDW Plt Count MPV Immature Gran % (Auto) Neut % (Auto) Lymph % (Auto) [place] % (Auto) Eos % (Auto) Baso % (Auto) Lymph # (Auto) [place] # (Auto) Eos # (Auto) Baso # (Auto) Abs Immat Gran (auto) Absolute Neuts (auto) Absolute Nucleated RBC Band Neutrophils % Nucleated RBC % Platelet Estimate % Immature Plt Fraction Macrocytosis Ovalocytes Schistocytes Sodium Potassium Chloride Carbon Dioxide Anion Gap BUN Creatinine Estim Creat Clear Calc Estimated GFR Glucose POC Capillary Glucose 127 H 145 H Hemoglobin A1c 4.8 Calcium Magnesium Total Bilirubin AST ALT Alkaline Phosphatase Total Protein Albumin Triglycerides Cholesterol LDL Cholesterol Direct HDL Direct Vitamin B12 Folate
[2025-05-21] MEDS: CYANOCOBALAMIN INJ 1,000 MCG/ML VIAL 1000 MCG IM (16:33)
[2025-05-21] MEDS: BENZOCAINE/MENTHOL (*BKC) 18 EA LOZENGE 1 LOZENGE PO (17:21)
[2025-05-22] VITALS: BP 127/105; PULSE 92; PULSE 93; PULSE 94; RESP 18; TEMP 36.6; O2SAT 95
[2025-05-22 03:48] VITALS: BP 127/105; PULSE 93
[2025-05-22 04:00] VITALS: PULSE 91
[2025-05-22] MEDS: chlordiazePOXIDE (*CRX) 25 MG CAPSULE PO (05:35)
[2025-05-22] MEDS: LEVOTHYROXINE SODIUM 25 MCG TABLET PO (05:35)
[2025-05-22 06:36] LABS: Hematocrit 36.8 % (42.0-52.0); Hemoglobin 13.1 g/dL (14.0-18.0); Immature Platelet Fraction Pct 3.4 % (0.9-11.2); Mean Corpuscular HGB Conc 35.6 g/dl (32-36); Mean Corpuscular Hemoglobin 38.2 pg (26-34); Mean Corpuscular Volume 107.3 fl (80-100); Platelet Count Result 102 k/mm3 (150-375); Red Blood Count 3.43 M/mm3 (4.6-6.20); White Blood Count 4.4 K/mm3 (4.5-10.0)
[2025-05-22 07:15] LABS: Alanine Aminotransferase 22 U/L (6-50); Albumin Level 4.7 g/dL (3.5-5.1); Alkaline Phosphatase 62 U/L (38-126); Anion Gap 10 mmol/L (4-12); Aspartate Amino Transferase 50 U/L (17-59); Bilirubin,Total 1.1 mg/dL (0.2-1.3); Blood Urea Nitrogen 15 mg/dL (9-20); Calcium 9.0 mg/dL (8.4-10.2); Carbon Dioxide 23 mmol/L (22-30); Chloride 97 mmol/L (98-107); Estimated CRCL calculation 103 ml/min; Estimated Glomerular Filt Rate > 60; Glucose 100 mg/dL (65-110); Potassium 3.3 mmol/L (3.4-5.0); Sodium 130 mmol/L (137-145); Total Protein 7.8 g/dL (6.3-8.2)
[2025-05-22 08:00] VITALS: BP 119/86; PULSE 89; PULSE 91; RESP 16; TEMP 36.5; O2SAT 99
--- NOTE | 2025-05-22 08:32 | P.DS_ITS ---
DS: Admitting Diagnosis Discharge Date May 22, 2025 Admitting Diagnosis Alcohol withdrawal seizure DS: Discharge Diagnosis Discharge Diagnosis (1) Alcohol withdrawal seizure: Qualifiers: Complication of substance-induced condition: uncomplicated Qualified Code(s): F10.930 - Alcohol use, unspecified with withdrawal, uncomplicated; R56.9 - Unspecified convulsions Code(s): F10.939 - Alcohol use, unspecified with withdrawal, unspecified; R56.9 - Unspecified convulsions Status: Acute Assessment and Plan: * MRI brain with evidence for atherosclerosis, no mass lesion or prior stroke * No need for AED * Alcohol w/d sz 05/19, 2nd day after alcohol cessation * Continue chlordiazepoxide at 25 mg q 8 hr (2) Alcohol use disorder: Code(s): F10.90 - Alcohol use, unspecified, uncomplicated Status: Acute Assessment and Plan: * Will need meetings, possibly medications to assist with abstinence * Chlordiazepoxide taper at discharge (3) Essential hypertension: Code(s): I10 - Essential (primary) hypertension Status: Acute Assessment and Plan: * 05/21 133/99 * Continue amlodpine * Will need f/u with PCP (4) Hypothyroidism (acquired): Code(s): E03.9 - Hypothyroidism, unspecified Status: Acute Assessment and Plan: * Continue levothyroxine at 25 mcg daily * F/u with PCP to adjust dose every 6-8 weeks (5) Pancytopenia: Code(s): D61.818 - Other pancytopenia Status: Acute Assessment and Plan: * Likely related to low B12 and alcohol consumption, primary marrow disorder less liekly * Will need f/u with PCP (6) Vitamin B12 deficiency: Code(s): E53.8 - Deficiency of other specified B group vitamins Status: Acute Assessment and Plan: * B12 IM, then B12 and folate PO * Will need f/u with PCP DS: Summary Hospital Course Hospital Course: This gentleman was traveling and had last had a drink May 17. He had a seizure in the hotel room generalized tonic clonic on May 19. He was admitted for alcohol withdrawal seizures. He had been drinking at least 1/2 of a 5th per day chronically. He did not drink while traveling as he had to take turns driving up from [place] to [place]. During his admission he had elevated blood pressure and elevated TSH was low free T4. These were addressed with amlodipine hydrochlorothiazide and levothyroxine. B12 was low folic acid was normal. He was started on oral B12 folic acid and given 1000 mcg of B12 IM x1. He had no seizures during hospitalization on alcohol withdrawal protocol with Librium initially 50 mg and 25 mg every 6 hours. Taper was initiated at discharge. He had slightly low potassium on day of discharge this was addressed with potassium chloride 40 mEq orally and hydrochlorothiazide was discontinued his blood pressure was 1 teens over 70s. He did have of mild pancytopenia presumably due to the combination of alcohol and B12 deficiency. He was instructed in on the importance of following up with his primary physician and [place] within 7 to 8 days of discharge. He was instructed on the importance of abstaining from alcohol. He stated that he understood these directions and will comply with all recommendations. Time Spent with Patient Time attestation: Total time spent providing and/or coordinating discharge services: Exam Narrative: HEENT: EOMI, PERRL, sclerae nonicteric, pharyngeal mucosa pink and intact NECK: No JVD, adenopathy, or thyromegaly CHEST: Clear to auscultation. Normal effort HEART: NL S1/S2, regular, no murmur ABDOMEN: BS+, soft, nontender, no mass, no bruits EXTREMITIES: No cyanosis, edema, or clubbing NEUROLOGIC: CN intact and symmetric to inspection MUSCULOSKELETAL: Tone and strength symmetric PSYCH: Alert. Oriented to person, place, and time DS: Data Data Completed and Pending Labs on day of discharge: Labs from last 24 hours 05/22/25 05/22/25 05/22/25 06:50 05:31 00:07 WBC 4.4 L RBC 3.43 L Hgb 13.1 L Hct 36.8 L MCV 107.3 H MCH 38.2 H MCHC 35.6 RDW 13.3 Plt Count 102 L MPV 9.9 % Immature Plt Fraction 3.4 Sodium 130 L Potassium 3.3 L Chloride 97 L Carbon Dioxide 23 Anion Gap 10 BUN 15 D Creatinine 0.71 Estim Creat Clear Calc 103 Estimated GFR > 60 Glucose 100 POC Capillary Glucose 129 H 128 H Calcium 9.0 Total Bilirubin 1.1 AST 50 ALT 22 Alkaline Phosphatase 62 Total Protein 7.8 Albumin 4.7 05/21/25 05/21/25 17:02 11:59 WBC RBC Hgb Hct MCV MCH MCHC RDW Plt Count MPV % Immature Plt Fraction Sodium Potassium Chloride Carbon Dioxide Anion Gap BUN Creatinine Estim Creat Clear Calc Estimated GFR Glucose POC Capillary Glucose 126 H 145 H Calcium Total Bilirubin AST ALT Alkaline Phosphatase Total Protein Albumin Discharge Plan Discharge Consulting providers: Jd Lyles Discharging Clinician: Umang Ledezma Patient Disposition: Home Activity: other - see discharge instructions Diet: heart healthy Discharge Instructions: NO driving until seen by primary physician. No alcohol containing products. Patient Language: Mozambican Stand Alone Forms: General Discharge Information Follow-up/Referrals: PHYSICIAN,[facility] [Primary Care Provider, Internal Medicine] - Call for Appointment Discharge Medications: New chlordiazepoxide HCl 25 mg Capsule See Rx Instructions .ROUTE .COMPLEX Qty: 18 0RF Rx Instructions: 25 mg orally ;Take 1 3 times daily for 3 days, 1 2 times daily for 3 days, 1 daily for 3 days, then stop folic acid 1 mg Tablet 1 mg PO DAILY Qty: 10 0RF amlodipine [Norvasc] 5 mg Tablet 5 mg PO DAILY Qty: 10 0RF cyanocobalamin (vitamin B-12) [Vitamin B-12] 1,000 mcg Tablet 1,000 mcg PO QAM Qty: 10 0RF acetaminophen 325 mg Tablet 650 mg PO Q4H PRN (Reason: Mild Pain (1-3) Or Fever) Qty: 30 0RF thiamine HCl (vitamin B1) [Vitamin B-1] 100 mg Tablet 100 mg PO DAILY Qty: 10 0RF levothyroxine 25 mcg Tablet 25 mcg PO DAILY@0630 Qty: 10 0RF Date of admission: 05/19/25 17:05 Primary Care Provider: PHYSICIAN,[facility] Admitting Provider: Mame Vargas Attending physician on admission: Mame Vargas Condition: Improved
[2025-05-22] MEDS: THIAMINE HCL 100 MG TABLET PO (08:50)
[2025-05-22] MEDS: CYANOCOBALAMIN 1,000 MCG TABLET 1000 MCG PO (08:50)
[2025-05-22] MEDS: FOLIC ACID 1 MG TABLET PO (08:50)
[2025-05-22] MEDS: POTASSIUM CHLORIDE 20 MEQ ER TABLET 40 MEQ PO (08:50)
== END 2025-05-22 10:30 | disposition home or self-care (01) ==
LOC: ANHED 14:38 → ANHIMU 21:52 → ANH3MED 05-21 22:20 → ANHIMU 05-23 13:31
PROVIDERS: Internal Medicine; Nurse Practitioner Adult Health; Admitting Provider Family Medicine; Emergency Provider Emergency Medicine; Visit Provider Internal Medicine
DX: F10.930 Alcohol use, unspecified with withdrawal, uncomplicated (principal); R56.9 Unspecified convulsions; F10.90 Alcohol use, unspecified, uncomplicated; I10 Essential (primary) hypertension; E03.9 Hypothyroidism, unspecified; D61.818 Other pancytopenia; R79.89 Other specified abnormal findings of blood chemistry; E53.8 Deficiency of other specified B group vitamins; F17.210 Nicotine dependence, cigarettes, uncomplicated; Z89.029 Acquired absence of unspecified finger(s)
CPT/HCPCS: 36415; 70450; 70551; 80048; 80053; 80061; 80307; 81001; 82077; 82607; 82746; 82948; 83036; 83735; 84439; 84443; 85025; 85027; 85055; 85610; 85730; 93005; 96361; 96365; 96374; 96376; 99285; A9270; G0378; J0360; J1953; J3360; J3420; J7030